=== PATIENT | female | born 1975 | race African-American/Black ===

== ENCOUNTER 2021-08-29 08:33 | Day surgery (SDC) | payer OTHER ==
--- NOTE | 2021-08-28 21:31 | History and Physical Report ---
History of Present Illness Date of examination: 08/28/21 Chief complaint: Retained IUD History of present illness: Pt is a 45 year old who presents for surgical management of retained IUD after failed attempt to remove IUD in office. She asks that a new Mirena device be placed during this procedure. Past History Past Medical History: hypertension Past Surgical History: breast surgery (breast augmentation), [employer]/uterine surgery (tubal ligation ), section (x 3) Family/Genetic History: diabetes, hypertension Social history: no significant social history - Obstetrical History : 3 Para: 3 Hx # Term Pregnancies: 3 Number of Pregnancies: 0 Spontaneous Abortions: 0 Induced : 0 Number of Living Children: 3 Medications and Allergies Allergies Allergy/AdvReac Type Severity Reaction Status Date / Time No Known Allergies Allergy Unverified 08/17/21 17:18 Home Medications Medication Instructions Recorded Confirmed Last Taken Type Amlodipine Besylate [Norvasc] 5 mg PO DAILY 08/17/21 08/17/21 Unknown History Review of Systems All systems: negative - Physical Exam Breasts: Positive: deferred Cardiovascular: Regular rate Lungs: Positive: Clear to auscultation Abdomen: Positive: soft Uterus: Positive: normal size Extremities: Positive: normal Results All other labs normal. Assessment and Plan A: Retained IUD Contraceptive Management P: Proceed with exam under anesthesia, hysteroscopic IUD removal, Mirena insertion and other indicated procedures
[~2021-08-29 08:33] MED LIST: LACTATED RINGERS 1,000 ML IV SCH; ceFAZolin/Water 2 GM/20 ML 2 GM/20 ML SYRINGE IV NR
[2021-08-29] MEDS ORDERED: ceFAZolin/Water 2 GM/20 ML 2 GM/20 ML SYRINGE IV NR (10:00)
[2021-08-29] MEDS ORDERED: LACTATED RINGERS 1,000 ML IV SCH (10:00)
[2021-08-29] MEDS ORDERED: HYDROmorphone 1 MG/1 ML INJ IV PRN ×2 (11:00)
[2021-08-29] MEDS ORDERED: ONDANSETRON 4 MG/2 ML INJ IV PRN (11:00)
[2021-08-29] MEDS ORDERED: MIDAZOLAM 2 MG/2 ML INJ IV NR (11:00)
--- NOTE | 2021-08-29 11:14 | Anesthesia Day of Surgery ---
Anesthesia Day of Surgery - Day of Surgery Patient Examined: Yes Patient H&P Reviewed: Yes Patient is NPO: Yes
--- NOTE | 2021-08-29 11:14 | Anesthesia Consultation ---
Anesthesia Consult and Med Hx Date of service: 08/29/21 - Airway Anesthetic Teeth Evaluation: Good ROM Head & Neck: Adequate Mental/Hyoid Distance: Adequate Mallampati Class: Class II Intubation Access Assessment: Good - Pre-Operative Health Status ASA Pre-Surgery Classification: ASA2 Proposed Anesthetic Plan: General - Pulmonary Hx Smoking: No - Cardiovascular System Hx Hypertension: Yes - Central Nervous System Hx Psychiatric Problems: No - Other Systems Hx Alcohol Use: Yes (Occas) Hx Cancer: No
[2021-08-29] MEDS ORDERED: SILVER NITRATE APPLICATOR 1 EA TP ONE ×3 (11:34→13:09)
[2021-08-29] MEDS ORDERED: FERRIC SUBSULFATE TOPICAL SOLN 8 ML TP ONE (11:34)
[2021-08-29 11:47] LABS: Hematocrit 41.5 % (30.3-42.9); Hemoglobin 13.7 gm/dl (10.1-14.3); Mean Corpuscular HGB Conc 33 % (30-34); Mean Corpuscular Volume 91 fl (79-97); Platelet Count 365 K/mm3 (140-440); Red Blood Count 4.54 M/mm3 (3.65-5.03); Red Cell Distribution Width 14.3 % (13.2-15.2)
[2021-08-29] MEDS ORDERED: propofoL 200 MG/20 ML VIAL IV ONE (12:21)
[2021-08-29] MEDS ORDERED: LIDOCAINE MPF (2%) 20 MG/1 ML VIAL 5 ML ONE (12:21)
[2021-08-29] MEDS ORDERED: HYDROmorphone 1 MG/1 ML INJ ONE (12:21)
[2021-08-29] MEDS ORDERED: dexAMETHasone 20 MG/5 ML VIAL ONE (12:23)
[2021-08-29] MEDS ORDERED: ONDANSETRON 4 MG/2 ML INJ ONE (12:23)
[2021-08-29] MEDS ORDERED: SODIUM CHLORIDE 0.9% IRRIG SOLN 2000 ML IR ONE (13:10)
--- NOTE | 2021-08-29 13:21 | Operative Report ---
Operative Report Operative Report: Date of Procedure: August 29, 2021 Preoperative Diagnosis: Retained IUD Postoperative Diagnosis: SAme Procedure: 1) Hysteroscopic IUD Removal 2) Mirena Insertion Surgeon: Sonia Lerner M.D. Findings: 1) 2-3 cm right vulvar mass not mentioned previously by the patient 2) Anteverted uterus sounded to 10 cm 3) IUD in endometrial cavity Anesthesia: General with LMA Estimated blood loss: 20 mL Specimens: IUD to pathology Drains: None Complications: None Disposition: Stable to PACU Indications for procedure: Pt is a 45 year old who presents for surgical management of retained IUD and subsequent Mirena reinsertion. Operation in detail: After the risks, benefits, alternatives and complications of the procedure were explained to the patient, she gave informed consent for the procedure. She was subsequently taken to the operating room and placed in the dorsal supine position with her IV noted to be running well. SCDs noted to be in place and functioning. General anesthesia was then induced without difficulty. The patient was then placed in dorsal lithotomy position and prepped and draped in normal sterile fashion. A timeout was performed. An exam under anesthesia was performed yielding a normal sized anteverted uterus. A red rubber catheter was used to drain the bladder yielding clear urine. An open sided speculum was then placed into the vagina for adequate visualization of the cervix. The anterior lip of the cervix was then grasped with a tenaculum for traction. The uterus was then gently sounded to 10 cm. The cervix was then dilated to accommodate a #19 Daly dilator. At this time, a hysteroscope was introduced to visualize the endometrial cavity which revealed an IUD. The IUD string was grasped with a grasper, and the hysteroscope, grasper and IUD were removed atraumatically. The IUD was sent to pathology. A new Mirena IUD was then inserted per protocol without difficulty. At this time, the single- tooth tenaculum was removed from the cervix. Silver nitrate was placed on the tenaculum puncture sites for hemostasis. All instruments were removed from the vagina atraumatically and the procedure was ended. The patient was placed into the dorsal supine position and extubated without difficulty. She was subsequently taken to the PACU in stable condition. She tolerated the procedure well. All counts were correct 2.
--- NOTE | 2021-08-29 13:27 | Short Stay Summary ---
Short Stay Documentation Date of service: 08/29/21 - History H&P: dictated Social history: no significant social history - Allergies and Medications Current Medications: Allergies No Known Allergies Allergy (Unverified 08/17/21 17:18) Home Medications Medication Instructions Recorded Confirmed Last Taken Type Amlodipine Besylate [Norvasc] 5 mg PO DAILY 08/17/21 08/17/21 Unknown History Active Medications Hydromorphone HCl (Hydromorphone 1 Mg/1 Ml Inj) 0.25 mg IV Q10MIN PRN PRN Reason: Pain, Moderate (4-6) Stop: 08/29/21 23:00 Hydromorphone HCl (Hydromorphone 1 Mg/1 Ml Inj) 0.5 mg IV Q10MIN PRN PRN Reason: Pain , Severe (7-10) Stop: 08/29/21 23:00 Cefazolin Sodium (Ancef/Sterile Water 2 Gm/20 Ml) 2 gm in 20 mls @ 80 mls/hr IV PREOP NR; Protocol Stop: 08/29/21 23:45 Lactated Ringer's (Lactated Ringers) 1,000 mls @ 75 mls/hr IV DIRECT GEGE Midazolam HCl (Midazolam 2 Mg/2 Ml Inj) 2 mg IV PREOP NR Stop: 08/29/21 23:59 Ondansetron HCl (Ondansetron 4 Mg/2 Ml Inj) 4 mg IV ONCE PRN PRN Reason: Nausea And Vomiting Stop: 08/29/21 16:00 - Physical exam Breasts: deferred - Brief post op/procedure progress note Date of procedure: 08/29/21 Pre-op diagnosis: Retained IUD Post-op diagnosis: same Procedure: Hysteroscopic IUD removal, Mirena Insertion Anesthesia: GETA (LMA ) Findings: 1) 2-3 cm right vulvar mass not mentioned previously by the patient 2) Anteverted uterus sounded to 10 cm 3) IUD in endometrial cavity Surgeon: ROM LERNER Estimated blood loss: minimal (20 mL) Pathology: list (IUD to pathology) Specimen disposition: to lab Condition: stable - Hospital course Hospital course: The patient underwent hysteroscopic IUD removal and Mirena reinsertion which she tolerated well. She was observed in the PACU until she met discharge criteria. She will follow-up in the office in [address] Lerner - Disposition Condition at discharge: Stable Disposition: 01 HOME / SELF CARE / HOMELESS - Discharge Diagnoses (1) IUD complication Status: Acute (2) Hypertension Status: Acute Qualifiers: Hypertension type: unspecified Qualified Code(s): I10 - Essential (primary) hypertension (3) Encounter for insertion of mirena IUD Status: Acute Short Stay Discharge Plan Activity: other (Nothing in vagina, no tub baths, no intercourse x 4 wks ) Weight Bearing Status: Full Weight Bearing Diet: regular Follow up with: NU WILEY MD [Primary Care Provider] - 7 Days ROM LERNER MD [Staff Physician] - 09/12/21 (please schedule post op appt ) Prescriptions: Ibuprofen [Motrin] 800 mg PO Q8HR PRN #30 tablet PRN Reason: Pain, Moderate (4-6) HYDROcodone/APAP 5-325 [[place] 5/325] 1 each PO Q6HR PRN #15 tablet PRN Reason: Pain
[2021-08-29 14:06] VITALS: BP 130/74
--- NOTE | 2021-08-29 17:59 | Post Anesthesia Evaluation ---
- Post Anesthesia Evaluation Patient Participated: Yes Airway Patent: Yes Stable Respiratory Function: Yes Nausea/Vomiting: No Temp > 96.8F: Yes Pain Manageable: Yes Adequeate Hydration: Yes Anesthesia Complications: No Block Receding Appropriately: Not Applicable Patient on Ventilator: No
== END 2021-08-29 14:35 | disposition home or self-care (01) ==
LOC: OR 08:33
PROVIDERS: ATTEND Obstetrics & Gynecology
DX: T83.89XA Other specified complication of genitourinary prosthetic devices, implants and grafts, initial encounter (principal); I10 Essential (primary) hypertension; Z79.899 Other long term (current) drug therapy; Z98.890 Other specified postprocedural states; Y83.8 Other surgical procedures as the cause of abnormal reaction of the patient, or of later complication, without mention of misadventure at the time of the procedure
CPT/HCPCS: 36415; 58300; 58562; 81025; 85027; 88302; J0690; J1100; J1170; J2250; J2405; J2704; J3490; J7120